=== PATIENT | male | born 1955 | race Caucasian/White ===

== ENCOUNTER 2017-10-28 06:22 | Day surgery (SDC) | payer BC ==
[~2017-10-28 06:22] MED LIST: Lactated Ringers 1,000 ML IV SCH
[2017-10-28] MEDS ORDERED: Propofol 200 MG/20 ML SDV ONE ×2 (07:52→08:00)
[2017-10-28] MEDS ORDERED: fentaNYL 100 MCG/2 ML SDV ONE (07:52)
--- NOTE | 2017-10-28 11:02 | OR ---
DATE OF SURGERY: 10/28/2017 REFERRING PROVIDER: Benoit Mayo M.D. PRE-OPERATIVE DIAGNOSES: Screening colonoscopy. The patient's last colonoscopy was about 10 years ago. He states there is a positive family history of colon polyps in sibling as well as parents. No family history of colon cancer. POST-OPERATIVE DIAGNOSES: 1. 2-mm polyp at 40 cm, removed with cold forceps. 2. Otherwise normal colonoscopy. PROCEDURE: Colonoscopy with polypectomy x1 using cold forceps. SURGEON: Ernesto Mulligan M.D. ANESTHESIA: Monitored anesthesia care. BOWEL PREP: Good. Benoit is a 62-year-old male who was brought to the endoscopy suite after discussing risks and benefits of the procedure. Informed consent was obtained for conscious sedation and colonoscopy with or without biopsy and/or polypectomy. We also discussed possibility of missed lesions. Pre-procedure exam was unremarkable. IV, oxygen, and monitors were placed. The patient was placed in the left lateral decubitus position. Sedation was administered and a digital rectal exam was performed which was unremarkable. Colonoscope was passed into the rectum and slowly advanced all the way to the cecum. Cecum was viewed and photographed. The colonoscope was slowly withdrawn and the mucosa was closed observed in a direct circumferential manner. The ascending colon was unremarkable. The transverse colon was unremarkable. The descending colon did reveal a 2-mm polyp at 40 cm removed with cold forceps. The sigmoid colon was unremarkable. Retroflexion was performed and rectal mucosa was unremarkable. Scope was removed. The patient tolerated the procedure well. The patient was monitored until that baseline status. Discharge instructions were reviewed and the patient was discharged in good condition. COMPLICATIONS: None. TOTAL TIME: 19 minutes. ESTIMATED BLOOD LOSS: Less than 1 mL. RECOMMENDATIONS/FOLLOW-UP: We will await result of path reports and determine ideal followup interval. I would like to kindly thank Dr. Mayo for this referral. DMB: 10/28/2017 09:55:04 MODL: 10/28/2017 10:57:21 /[id number]
== END 2017-10-28 09:40 | disposition home or self-care (01) ==
LOC: VM.SDS 06:22
PROVIDERS: ATTEND Family Medicine
DX: Z12.11 Encounter for screening for malignant neoplasm of colon (principal); D12.4 Benign neoplasm of descending colon; I10 Essential (primary) hypertension; E78.00 Pure hypercholesterolemia, unspecified; Z87.891 Personal history of nicotine dependence; Z79.82 Long term (current) use of aspirin; Z79.899 Other long term (current) drug therapy; Z98.890 Other specified postprocedural states
CPT/HCPCS: J2704; J3010; J7120